=== PATIENT | female | born 1985 | race African-American/Black ===

== ENCOUNTER 2018-05-03 08:45 | Inpatient (IN) | payer OTHER ==
[~2018-05-03] VITALS: Ht 167.6 cm; Wt 108.4 kg
[2018-05-03] MEDS ORDERED: PRENATAL TABLE1 EAC2 PO (09:30)
[2018-05-03 09:59] LABS: ABSOLUTE BASOPHIL COUNT 0 /CUMM (0.0-0.2); ABSOLUTE EOSINOPHIL COUNT 0.1 /CUMM (0.0-0.7); ABSOLUTE LYMPH COUNT 1.2 /CUMM (1.2-3.4); ABSOLUTE MONOCYTE COUNT 0.4 /CUMM (0.10-0.60); BASOPHIL % 0.2 % (0.0-2.0); EOSINOPHIL % 1.5 % (0-5); GRANULOCYTE % 73.8 % (42.2-75.2); HEMATOCRIT 28.9 % (37-47); MEAN CORPUSCULAR HGB CONC 34.2 G/DL (33.0-37.0); MEAN CORPUSCULAR VOLUME 76.1 FL (81.0-99.0); MEAN PLATELET VOLUME 7.8 FL (7.4-10.4); PLATELET COUNT 252 /CUMM (130-400); WHITE BLOOD CELL COUNT 6.7 /CUMM (4.8-10.8)
--- NOTE | 2018-05-03 11:45 | History & Physical ---
General Information and HPI MD Statement: I have seen and personally examined DAVID BOSWELL and documented this H& P. The patient is a 32 year old female at 38 weeks and 6 days gestation who presented with a chief complaint of rpm clear fluid. Source of Information: patient, old records Exam Limitations: no limitations History of Present Illness: pt reports ROM 645 this AM +fm -vb fluid clear pt well known to our group this is her second baby first was 5#15oz she is GBS Positive and Obese. Allergies/Medications Allergies: Coded Allergies: No Known Allergies (05/03/18) Home Med list Vit No.130/Iron/FA ( Tablet) 27 MG IRON-800 MCG TABLET 1 TAB PO DAILY supplement (Reported) Compliance With Home Meds: GOOD Past History vp strategic planning History : 2 Para: 1 Last Menstrual Period: 07/24/17 Estimated Delivery Date: 05/11/18 Past vp strategic planning History: none Past Pregnancies Past Pregnancies: Date of Delivery: 08/28/16 Gestational Age: 37weeks Length of Labor: 10hrs Weight: 5# 15oz Type of Delivery: vaginal Anesthesia: epidural Place of Delivery: [place] Complications: none Surgical History Pertinent Surgical History: none Review of Systems Review of Systems Constitutional: Denies: chills, fever. EENTM: Denies: blurred vision, double vision, visual changes. Cardiovascular: Denies: chest pain. Respiratory: Denies: cough, short of breath. GI: Denies: diarrhea, nausea, vomiting. Neurological/Psychological: Denies: anxiety, depressed. Exam & Diagnostic Data Last 24 Hrs of Vital Signs/I&O vss Intake & Output 05/03 1600 05/03 0800 05/03 0000 Intake Total Output Total Balance Patient 239 lb Weight Obstetric Exam Wgt Gained During : no signifigant wt gain Pelvimetry: tested to 5#15oz seems adequate Dilation (cm): 4 Effacement (%): 50 Station: -2 Membranes: SROM Fluid: clear Fundal Height (cm): 40 Multiple Gestation? No Contractions: Q3-5 min #1 - FHR Baseline: 140 Category: 1 Estimated Weight: 3500G Presentation: vtx Patient for Induction? No Physical Exam General Appearance Alert, Oriented X3, Cooperative, Mild Distress Skin No Rashes HEENT Atraumatic Neck Supple Cardiovascular Regular Rate Lungs Clear to Auscultation Abdomen Soft Neurological Normal Gait, Normal Speech, Strength at 5/5 X4 Ext, Normal Tone Labs Blood Type & Rh: B Pos Antibody Screen: neg Hct/Hgb & Platelets #1: 33.8/10.5/284 Hct/Hgb & Platelets #2: 32.2/9.6/255 Rubella: imm VDRL #1: nr VDRL #2: nr HbsAg: neg HIV #1: nr HIV #2 nr 1 Hr P Group B Strep: positive Initial Ultrasound: 10/10/17 9w 4d Anatomy Ultrasound: [facility] Anatomy normal Ultrasound for EFW: 04/13 50%tile Genetic Testing: cffDNA normal Last 24 Hrs of Labs/Joe: Laboratory Tests 05/03/18 0915: Hemoglobin A1c 5.0, CBC w Diff NO MAN DIFF REQ, RBC 3.80 L, MCV 76.1 L, MCH 26.0 L, MCHC 34.2, RDW 15.0 H, MPV 7.8, Gran % 73.8, Lymphocytes % 18.0 L, Monocytes % 6.5, Eosinophils % 1.5, Basophils % 0.2, Absolute Granulocytes 5.0, Absolute Lymphocytes 1.2, Absolute Monocytes 0.4, Absolute Eosinophils 0.1, Absolute Basophils 0, Urine Color YEL, Urine Clarity HAZY H, Urine pH 7.0, Ur Specific [place] 1.015, Urine Protein TRACE H, Urine Ketones NEG, Urine Nitrite NEG, Urine Bilirubin NEG, Urine Urobilinogen 1.0, Ur Leukocyte Esterase TRACE H , Ur Microscopic SEDIMENT EXAMINED, Urine RBC 1-3, Urine WBC RARE, Ur Epithelial Cells MOD H, Urine Bacteria FEW H, Urine Hemoglobin MOD H, Urine Glucose NEG 05/03/18 0855: Membrane Rupture Cancelled Assessment/Plan Assessment/Plan: IUP at Term SROM GBS positive/ pen propholaxis Obesity elevated 1h pg /HbA1C normal x2 Anemia/ On FeSO4 As Ranked By This Provider Problem List: 1. Core Measures Venous Thromboembolism VTE Risk Factors / No Mechanical VTE Prophylaxis d/t LowRisk-No Interven Req'd No VTE Pharm Prophylaxis d/t LowRisk-No Interven Req'd
--- NOTE | 2018-05-03 19:50 | Labor & Delivery Summary ---
Delivery Summary Vaginal Delivery: Vaginal: vertex Episiotomy/Lacerations: Episiotomy/Lacerations: none Placenta: Placenta: spontanteous, normal, 3 vessel Anesthesia: block Additional Comments: Pt delivered viable female infant over intact perinum placenta followed intact good hemostasis.
[2018-05-04 08:15] LABS: ABSOLUTE BASOPHIL COUNT 0 /CUMM (0.0-0.2); ABSOLUTE EOSINOPHIL COUNT 0.1 /CUMM (0.0-0.7); ABSOLUTE GRANULOCYTE CT 7.6 /CUMM (1.4-6.5); ABSOLUTE LYMPH COUNT 1.4 /CUMM (1.2-3.4); ABSOLUTE MONOCYTE COUNT 0.7 /CUMM (0.10-0.60); BASOPHIL % 0.2 % (0.0-2.0); EOSINOPHIL % 1.1 % (0-5); HEMATOCRIT 26.6 % (37-47); MEAN CORPUSCULAR HGB 25.7 PG (27.0-31.0); MEAN CORPUSCULAR HGB CONC 33.8 G/DL (33.0-37.0); MEAN PLATELET VOLUME 8.2 FL (7.4-10.4); PLATELET COUNT 228 /CUMM (130-400); RBC DISTRIBUTION WIDTH 14.8 % (11.5-14.5); WHITE BLOOD CELL COUNT 9.9 /CUMM (4.8-10.8)
--- NOTE | 2018-05-04 09:23 | PN- OBGYN ---
Surgical Brief Attending Note Brief Attending Note: PPD#1 pt is resting in bed, no complaints, tolerate diet, void without difficulties, ambulating well. PE: VSS CV RRR Lungs CTA B/L Abdomen: soft,nontender, uterus firm, fundus below umbilicus, lochia mild. Ext: DCT (-) A/P: 32 yo,s/p , PPD#1 1. encourage ambulation and 2. RT PP care
[2018-05-05] MEDS ORDERED: IBUPROFEN800 M1 PO (08:40)
--- NOTE | 2018-05-05 08:41 | PN- OBGYN ---
Surgical Brief Attending Note Brief Attending Note: PPD#2 pt is ambulating, no complaints. tolerate diet, void without difficulties. PE: VSS CV RRR Lungs CTA B/L Abdomen: soft, nontender, uterus firm, fundus below umbilicus. lochia mild Ext: edema(+), DCT (-) A/P: 32 yo, s/p ,PPD#2 1. encourage ambualtion and 2. pain management as needed 3. will d/c home, f/u in office in 2wks and 6 wks, dischatge instructions given, she understand
== END 2018-05-05 11:20 | DRG 775 ==
LOC: CBCO 08:45 → GNO 09:02 → CBCO 05-11 08:00
PROVIDERS: Obstetrics & Gynecology
PROC: 10E0XZZ Delivery of Products of Conception, External Approach (ICD-10-PCS; principal; 2018-05-03)
DX: O99.824 Streptococcus B carrier state complicating childbirth (principal); Z37.0 Single live birth; O99.214 Obesity complicating childbirth; Z3A.38 38 weeks gestation of pregnancy
CPT/HCPCS: GNOS; 36415; 81001; 84112; 87086; J7120